=== PATIENT | male | born 1990 | race American Indian/Alaskan Native ===

== ENCOUNTER 2020-12-04 16:01 | Emergency (ER) | payer SELFPAY ==
[2020-12-04 17:13] VITALS: BP 142/91
== END 2020-12-04 18:00 ==
LOC: ED 16:01
DX: K08.89 Other specified disorders of teeth and supporting structures (principal); Z53.21 Procedure and treatment not carried out due to patient leaving prior to being seen by health care provider

== ENCOUNTER 2021-12-14 15:07 | Emergency (ER) | payer SELFPAY ==
[2021-12-14] MEDS ORDERED: ASPIRIN 325 MG TAB PO ONE (15:21)
--- NOTE | 2021-12-14 15:56 | XRay Report ---
CHEST 2 VIEWS INDICATION / CLINICAL INFORMATION: chest pain. COMPARISON: 10/11/2020 FINDINGS: SUPPORT DEVICES: None. HEART / MEDIASTINUM: No significant abnormality. LUNGS / PLEURA: No significant pulmonary or pleural abnormality. No pneumothorax. ADDITIONAL FINDINGS: No significant additional findings. IMPRESSION: 1. No acute findings. Signer Name: Albert Fisher DO Signed: 12/14/2021 3:51 PM Workstation Name: [id number]
[2021-12-14 16:04] LABS: Basophils % (Auto) 0.5 % (0.0-1.8); Eosinophils # (Auto) 0.2 K/mm3 (0.0-0.4); Eosinophils % (Auto) 2.7 % (0.0-4.3); Hematocrit 39.6 % (35.5-45.6); Hemoglobin 13.1 gm/dl (11.8-15.2); Lymphocytes # (Auto) 3.6 K/mm3 (1.2-5.4); Lymphocytes % (Auto) 47.6 % (13.4-35.0); Mean Corpuscular HGB Conc 33 % (32-34); Mean Corpuscular Volume 92 fl (84-94); Monocytes # (Auto) 0.4 K/mm3 (0.0-0.8); Monocytes % (Auto) 4.7 % (0.0-7.3); Platelet Count 183 K/mm3 (140-440); Red Blood Count 4.29 M/mm3 (3.65-5.03); Red Cell Distribution Width 12.6 % (13.2-15.2)
[2021-12-14 16:22] LABS: Alanine Aminotransferase 13 units/L (7-56); Albumin 4.5 g/dL (3.9-5); BUN/Creatinine Ratio 14; Blood Urea Nitrogen 15 mg/dL (9-20); Calcium 9.9 mg/dL (8.4-10.2); Hemolysis Index 10
[2021-12-15] MEDS ORDERED: ASPIRIN 81 MG TAB CHEW ONE (01:16)
--- NOTE | 2021-12-15 02:20 | Emergency Department Report ---
ED Chest Pain HPI - General Chief Complaint: Chest Pain Stated Complaint: CHEST PAIN Time Seen by Provider: 12/15/21 00:57 Source: patient Mode of arrival: Stretcher Limitations: No Limitations - History of Present Illness Initial Comments: Patient is a 31-year-old male presenting to ED with complaint of left-sided chest discomfort beginning yesterday. He describes the pain as a intermittent sharp sensation. He denies any past history of coronary artery disease. He is a smoker. There were no modifying factors. Severity scale (0 -10): 0 - Related Data Allergies Allergy/AdvReac Type Severity Reaction Status Date / Time No Known Allergies Allergy Verified 12/15/21 01:00 Heart Score - HEART Score History: Slightly suspicious EKG: Normal Age: < 45 Risk factors: No known risk factors Troponin: < normal limit HEART Score: 0 - EKG Read Time Time EKG Completed: 15:55 EKG Read Time: 15:58 - Critical Actions Critical Actions: 0-3 pts:0.9-1.7%risk of adverse cardiac event.Candidate for discharge ED Review of Systems ROS: Stated complaint: CHEST PAIN Other details as noted in HPI Comment: All other systems reviewed and negative Constitutional: denies: chills, fever Respiratory: denies: cough, shortness of breath, wheezing Cardiovascular: chest pain Gastrointestinal: denies: abdominal pain, nausea, diarrhea Genitourinary: denies: urgency, dysuria Musculoskeletal: denies: back pain, joint swelling, arthralgia Skin: denies: rash, lesions Neurological: denies: headache, weakness, paresthesias Psychiatric: denies: anxiety, depression ED Past Medical Hx - Past Medical History Additional medical history: "heart problems" ED Physical Exam - General Limitations: No Limitations General appearance: alert, in no apparent distress - Head Head exam: Present: atraumatic, normocephalic - Respiratory Respiratory exam: Present: normal lung sounds bilaterally. Absent: respiratory distress - Cardiovascular Cardiovascular Exam: Present: regular rate, normal rhythm, normal heart sounds - GI/Abdominal GI/Abdominal exam: Present: soft. Absent: distended, tenderness - Rectal Rectal exam: Present: deferred - Neurological Exam Neurological exam: Present: alert, oriented X3 - Psychiatric Psychiatric exam: Present: normal affect, normal mood - Skin Skin exam: Present: warm, dry, intact, normal color ED Course Vital Signs 12/14/21 12/15/21 15:14 00:57 Temperature 98.3 F 98.0 F Pulse Rate 60 50 L Respiratory 18 17 Rate Blood Pressure 160/92 139/94 [Left] O2 Sat by Pulse 99 98 Oximetry ED Medical Decision Making - Lab Data Result diagrams: 12/14/21 15:24 12/14/21 15:24 - EKG Data -: EKG Interpreted by Me EKG shows normal: sinus rhythm, axis, intervals, QRS complexes, ST-T waves Rate: bradycardia - Medical Decision Making Chest x-ray shows no acute findings. 3 sets of troponins are unremarkable. Serum glucose 51. Patient denies history of diabetes and is not exhibiting signs/symptoms of hypoglycemia. Accu-Chek ordered and is 87. On reassessment patient states his symptoms are resolved. Heart score 0. Vital signs are stable. He is stable for discharge home with return precautions. Critical care attestation.: If time is entered above; I have spent that time in minutes in the direct care of this critically ill patient, excluding procedure time. ED Disposition Clinical Impression: Nonspecific chest pain Disposition: 01 HOME / SELF CARE / HOMELESS Is pt being admited?: No Condition: Stable Instructions: Nonspecific Chest Pain, Adult Additional Instructions: Please follow-up with your regular doctor within 1 to 2 weeks. You may return if your symptoms worsen. Time of Disposition: 03:14
[2021-12-15 03:34] VITALS: BP 133/78
--- NOTE | 2021-12-15 14:44 | Electrocardiograph Report ---
[facility] Test Date: 2021-12-14 Test Time: 15:55:57 Pat Name: SOLIS CORTEZ Department: Room: Gender: M Multigraph Operator: Merle VÁZQUEZ RN : [id number] Requested By: RUBY COLINDRES Order Number: [id number] Reading MD: Jonah Rob Measurements Intervals [place] Rate: 43 P: -6 TN: 188 QRS: 34 QRSD: 103 T: 62 QT: 411 QTc: 348 Interpretive Statements Sinus bradycardia No previous ECG available for comparison Electronically Signed On 12-15-2021 14:43:54 EDT by Jonah Rob
== END 2021-12-15 03:30 | disposition home or self-care (01) ==
LOC: ED 15:07
DX: R07.89 Other chest pain (principal)
CPT/HCPCS: 36415; 71046; 80053; 82962; 84484; 85025; 93005; 99284